=== PATIENT | female | born 1970 | race Caucasian/White ===

== ENCOUNTER 2020-07-12 19:02 | Emergency (ER) | payer SELFPAY ==
[~2020-07-12] VITALS: Ht 160 cm; Wt 66.7 kg
[~2020-07-12 19:02] MED LIST: SULF1TAB35 PO
[2020-07-12] MEDS ORDERED: LIDOCAINE/EPI 2% 1:100,00 (XYLOCAINE) 20 ML VIAL ONE (19:13)
--- NOTE | 2020-07-12 19:24 | ED EENT ---
History of Present Illness General Stated Complaint: LEFT CHEEK/FACIAL PAIN Source: patient Exam Limitations: no limitations History of Present Illness Date Seen by Provider: Jul 12, 2020 Time Seen by Provider: 19:22 Initial Comments To ER with reports of left cheek and facial pain since this morning. No fevers or chills. Timing/Duration: abrupt Severity: moderate Location: facial, dental Prearrival Treatment: no prearrival treatment Associated Symptoms: denies symptoms Allergies and Home Medications Allergies Coded Allergies: codeine (Verified Allergy, Unknown, 08/31/05) meperidine (Verified Allergy, Unknown, 08/31/05) morphine (Verified Allergy, Unknown, 08/31/05) Uncoded Allergies: MUSCLE RELAXANTS (Allergy, Unknown, 08/31/05) Home Medications Clindamycin HCl 300 Mg Capsule, 300 MG PO TID Prescribed by: PAULINE DE LA CRUZ on 07/12/202047 Hydrocodone/Acetaminophen 1 Each Tablet, 1 TAB PO Q4H PRN for PAIN-MODERATE (5- 7) Prescribed by: PAULINE DE LA CRUZ on 07/12/202047 Sulfamethoxazole/Trimethoprim 1 Each Tablet, 1 EACH PO BID Prescribed by: ANNIKA SHEPPARD on 01/09/12 1422 Patient Home Medication List Home Medication List Reviewed: Yes Review of Systems Review of Systems Constitutional: see HPI Eyes: No Symptoms Reported Ears: No Symptoms Reported Nose: no symptoms reported Mouth: no symptoms reported Throat: no symptoms reported Respiratory: no symptoms reported Cardiovascular: no symptoms reported Musculoskeletal: no symptoms reported Physical Exam Vital Signs Vital Signs - First Documented 07/12/20 19:12 Temp 36.3 Pulse 88 Resp 16 B/P (MAP) 136/79 (98) Pulse Ox 98 O2 Delivery Room Air Height, Weight, BMI Height: '" Weight: lbs. oz. kg; BMI Method:Stated General Appearance: WD/WN, no apparent distress Eyes: bilateral eye normal inspection, bilateral eye PERRL, bilateral eye EOMI Ears: bilateral ear auricle normal, bilateral ear canal normal, bilateral ear TM normal Mouth/Throat: other (Mild left facial erythema and swelling. Most of the pain seems to be originating from some swelling just superior to the 1 and 1/2 remaining teeth on the left side of the maxilla. Did a supraperiosteal nerve block using lidocaine with epinephrine totaling 2 mL. No fluctuance to suggest drainable abscess. Will obtain CT.) Neck: non-tender, full range of motion; No lymphadenopathy (R), No lymphadenopathy (L) Respiratory: no respiratory distress, no accessory muscle use Neurologic/Psychiatric: alert, normal mood/affect, oriented x 3 Skin: normal color, warm/dry Progress/Results/Core Measures Results/Orders Lab Results Laboratory Tests Test 07/12/20 19:21 Range/Units White Blood Count 6.3 4.3-11.0 10^3/uL Red Blood Count 4.92 3.80-5.11 10^6/uL Hemoglobin 13.7 11.5-16.0 g/dL Hematocrit 43 35-52 % Mean Corpuscular Volume 86 80-99 fL Mean Corpuscular Hemoglobin 28 25-34 pg Mean Corpuscular Hemoglobin Concent 32 32-36 g/dL Red Cell Distribution Width 13.2 10.0-14.5 % Platelet Count 196 130-400 10^3/uL Mean Platelet Volume 10.6 9.0-12.2 fL Immature Granulocyte % (Auto) 0 % Neutrophils (%) (Auto) 63 42-75 % Lymphocytes (%) (Auto) 24 12-44 % Monocytes (%) (Auto) 12 0-12 % Eosinophils (%) (Auto) 1 0-10 % Basophils (%) (Auto) 0 0-10 % Neutrophils # (Auto) 4.0 1.8-7.8 10^3/uL Lymphocytes # (Auto) 1.5 1.0-4.0 10^3/uL Monocytes # (Auto) 0.8 0.0-1.0 10^3/uL Eosinophils # (Auto) 0.1 0.0-0.3 10^3/uL Basophils # (Auto) 0.0 0.0-0.1 10^3/uL Immature Granulocyte # (Auto) 0.0 0.0-0.1 10^3/uL Sodium Level 140 135-145 MMOL/L Potassium Level 3.7 3.6-5.0 MMOL/L Chloride Level 108 H 98-107 MMOL/L Carbon Dioxide Level 22 21-32 MMOL/L Anion Gap 10 5-14 MMOL/L Blood Urea Nitrogen 9 7-18 MG/DL Creatinine 0.70 0.60-1.30 MG/DL Estimat Glomerular Filtration Rate > 60 BUN/Creatinine Ratio 13 Glucose Level 97 70-105 MG/DL Calcium Level 8.7 8.5-10.1 MG/DL My Orders Orders - PAULINE DE LA CRUZ APRN Ct Maxillofacial W (07/12/20 19:20) Cbc With Automated Diff (07/12/20 19:20) Basic Metabolic Panel (07/12/20 19:20) Ketorolac Injection (Toradol Injection) (07/12/20 19:30) Ns Iv 1000 Ml (Sodium Chloride 0.9%) (07/12/20 19:30) Clindamycin 900 Mg/50 Ml Ivpb (Cleocin P (07/12/20 19:30) Iohexol Injection (Omnipaque 350 Mg/Ml 1 (07/12/20 19:30) Received Contrast (Hold Metformin- Contr (07/12/20 19:30) Ns (Ivpb) (Sodium Chloride 0.9% Ivpb Bag (07/12/20 19:30) Rx-Hydrocodone/Apap 5-325 Mg (Rx-Vicodin (07/12/20 21:00) Rx-Clindamycin Capsule (Rx-Cleocin Capsu (07/12/20 20:50) Medications Given in ED Current Medications Medications Dose Ordered Sig/Yesi Route Start Time Stop Time Status Last Admin Dose Admin Clindamycin Phosphate/Dextrose 50 ml @ 100 mls/hr ONCE ONCE IV 07/12/20 19:30 07/12/20 19:59 DC 07/12/20 19:41 100 MLS/HR Iohexol 75 ml ONCE ONCE IV 07/12/20 19:30 07/12/20 19:31 DC 07/12/20 20:01 80 ML Ketorolac Tromethamine 15 mg ONCE ONCE IVP 07/12/20 19:30 07/12/20 19:31 DC 07/12/20 19:41 15 MG Sodium Chloride 100 ml ONCE ONCE IV 07/12/20 19:30 07/12/20 19:31 DC 07/12/20 20:01 100 ML Vital Signs/I&O 07/12/20 19:12 Temp 36.3 Pulse 88 Resp 16 B/P (MAP) 136/79 (98) Pulse Ox 98 O2 Delivery Room Air Departure Communication (Admissions) Are a few dots of air seen in the left malar region. However the CT was obtained after subperiosteal injection for anesthesia. This area could very well be from the injection. White count is normal, afebrile no systemic symptoms. She received IV clindamycin. All of her prescription for same at home. NAME: ANA NICOLAS [facility] REC#: [id number] PT STATUS: REG ER : 1970 PHYSICIAN: PAULINE DE LA CRUZ APRN ADMIT DATE: 07/12/20/ER Draft Date of Exam:07/12/20 CT MAXILLOFACIAL W CLINICAL INDICATION: Patient with facial swelling with redness. Left side of the face is tender x 1 day ago. EXAM: Axial CT scan of maxillofacial structures performed with 80 mL of Omnipaque 350 IV contrast. Sagittal and coronal reformatted images were created. Auto Exposure Controls were utilized during the CT exam to meet ALARA standards for radiation dose reduction. COMPARISON: None. FINDINGS: Limited visualization of the intracranial structures show no significant abnormality. Orbits and globes are intact and unremarkable. There is significant soft tissue swelling involving the left malar, left upper lip region and adjacent left side of the nasal maxillary region. There is no fracture seen. There are bony erosions adjacent to the maxillary left premolar teeth with some cortical disruption of the medial lateral aspect of the maxilla alveolar region. There is significant dental caries with erosions of the crown of the maxillary left premolar or molar tooth in the region. There is a 7 mm x 4 mm x 10 mm abscess seen laterally adjacent to the left maxillary molar region by the bony erosions and dental caries of the left premolar/molar region. There are small focal areas of air seen in the left premolar region adjacent to the area of dental caries. There is dental caries also seen throughout the maxillary and mandibular teeth. There is moderate mucosal thickening involving the left maxillary sinus most pronounced in the floor region. Remainder of the paranasal sinuses are clear. Mastoid air cells are clear. The remainder of the neck soft tissue structures are unremarkable. Cervical spine shows mild degenerative spurs. IMPRESSION: 1: There is significant dental caries and bony erosions with cortical disruption of the maxillary left premolar/molar region and a small adjacent soft tissue abscess. There is significant soft tissue swelling in the left malar and left upper lip region. There are dots of soft tissue air in the left malar region as well. These findings are all concerning for an odontogenic process. 2: There is poor dentition seen throughout the maxillary and mandibular regions. 3: Left maxillary sinus disease. Dictated on workstation # [id number] Dict: 07/12/202010 Trans: 07/12/202036 Emil [id number] Interpreted by: DELONTE MORENO MD Electronically signed by: Impression Primary Impression: Cellulitis and abscess of face Disposition: 01 HOME, SELF-CARE Condition: Stable Departure-Patient Inst. Decision time for Depature: 20:46 Referrals: NO,LOCAL PHYSICIAN (PCP/Family) Primary Care Physician Patient Instructions: Dental Pain Add. Discharge Instructions: . Return to ER for worsening swelling or fevers. Call your dentist of your choosing on Wednesday. Take antibiotics as directed. Scripts Clindamycin HCl (Clindamycin HCl) 300 Mg Capsule 300 MG PO TID, #21 CAP Prov: PAULINE DE LA CRUZ APRN 07/12/20 Hydrocodone/Acetaminophen (Hydrocodone-Acetamin 5-325 mg) 1 Each Tablet 1 TAB PO Q4H PRN for PAIN-MODERATE (5-7), #5 TAB Prov: PAULINE DE LA CRUZ APRN 07/12/20 Work/School Note: Work Release Form Date Seen in the Emergency Department: Jul 12, 2020 Return to Work: Jul 13, 2020 PAULINE DE LA CRUZ APRN Jul 12, 2020 19:24
[2020-07-12 19:26] LABS: BASOPHILS % (AUTO) 0 % (0-10); EOSINOPHILS # (AUTO) 0.1 10^3/uL (0.0-0.3); EOSINOPHILS % (AUTO) 1 % (0-10); HEMATOCRIT 43 % (35-52); HEMOGLOBIN 13.7 g/dL (11.5-16.0); LYMPHOCYTES # (AUTO) 1.5 10^3/uL (1.0-4.0); LYMPHOCYTES % (AUTO) 24 % (12-44); MEAN CORPUSCULAR HEMOGLOBIN 28 pg (25-34); MEAN CORPUSCULAR HGB CONC 32 g/dL (32-36); MEAN CORPUSCULAR VOLUME 86 fL (80-99); MEAN PLATELET VOLUME 10.6 fL (9.0-12.2); MONOCYTES # (AUTO) 0.8 10^3/uL (0.0-1.0); MONOCYTES % (AUTO) 12 % (0-12); NEUTROPHILS % (AUTO) 63 % (42-75); PLATELET COUNT 196 10^3/uL (130-400); WHITE BLOOD COUNT 6.3 10^3/uL (4.3-11.0)
[2020-07-12] MEDS ORDERED: KETOROLAC 30 MG/ML VIAL IVP ONE (19:30)
[2020-07-12] MEDS ORDERED: NS 100 ML (IVPB) BAG IV ONE (19:30)
[2020-07-12] MEDS ORDERED: NS IV 1000 ML 1,000 ML IV SCH (19:30)
[2020-07-12] MEDS ORDERED: CLINDAMYCIN 900 MG/50 ML IVPB 50 ML IV ONE (19:30)
[2020-07-12] MEDS ORDERED: IOHEXOL 350 MG/ML 100 ML (OMNIPAQUE 350) VIAL IV ONE (19:30)
[2020-07-12] MEDS ORDERED: HOLD METFORMIN - RECEIVED CONTRAST 20 ML VIAL IV SCH (19:30)
[2020-07-12 19:37] LABS: CHLORIDE 108 MMOL/L (98-107); POTASSIUM 3.7 MMOL/L (3.6-5.0); SODIUM 140 MMOL/L (135-145)
[2020-07-12 19:38] LABS: CALCIUM 8.7 MG/DL (8.5-10.1); GLUCOSE 97 MG/DL (70-105)
[2020-07-12 19:40] LABS: CARBON DIOXIDE 22 MMOL/L (21-32)
[2020-07-12 19:42] LABS: GFR ESTIMATED > 60
[2020-07-12 19:43] LABS: BUN/CREATININE RATIO 13
--- NOTE | 2020-07-12 20:38 | Diagnostic Imaging Report ---
CLINICAL INDICATION: Patient with facial swelling with redness. Left side of the face is tender x 1 day ago. EXAM: Axial CT scan of maxillofacial structures performed with 80 mL of Omnipaque 350 IV contrast. Sagittal and coronal reformatted images were created. Auto Exposure Controls were utilized during the CT exam to meet ALARA standards for radiation dose reduction. COMPARISON: None. FINDINGS: Limited visualization of the intracranial structures show no significant abnormality. Orbits and globes are intact and unremarkable. There is significant soft tissue swelling involving the left malar, left upper lip region and adjacent left side of the nasal maxillary region. There is no fracture seen. There are bony erosions adjacent to the maxillary left premolar teeth with some cortical disruption of the medial lateral aspect of the maxilla alveolar region. There is significant dental caries with erosions of the crown of the maxillary left premolar or molar tooth in the region. There is a 7 mm x 4 mm x 10 mm abscess seen laterally adjacent to the left maxillary molar region by the bony erosions and dental caries of the left premolar/molar region. There are small focal areas of air seen in the left premolar region adjacent to the area of dental caries. There is dental caries also seen throughout the maxillary and mandibular teeth. There is moderate mucosal thickening involving the left maxillary sinus most pronounced in the floor region. Remainder of the paranasal sinuses are clear. Mastoid air cells are clear. The remainder of the neck soft tissue structures are unremarkable. Cervical spine shows mild degenerative spurs. IMPRESSION: 1: There is significant dental caries and bony erosions with cortical disruption of the maxillary left premolar/molar region and a small adjacent soft tissue abscess. There is significant soft tissue swelling in the left malar and left upper lip region. There are dots of soft tissue air in the left malar region as well. These findings are all concerning for an odontogenic infectious process. 2: There is poor dentition seen throughout the maxillary and mandibular regions. 3: Left maxillary sinus disease. Dictated by: Dictated on workstation # [id number]
[2020-07-12] MEDS ORDERED: ACHD5005 PO (20:48)
[2020-07-12] MEDS ORDERED: CLIN300C12 PO (20:48)
[2020-07-12] MEDS ORDERED: RX-CLINDAMYCIN 150 MG (CLEOCIN) CAP PPK#4 PO STA (20:50)
[2020-07-12] MEDS ORDERED: RX-HYDROCODONE/APAP 5/325 MG #4 TAB PK PO PRN (21:00)
[2020-07-12 21:31] VITALS: BP 125/86
== END 2020-07-12 21:31 | disposition home or self-care (01) ==
LOC: EDUNIT# 19:02 → ER 19:07
DX: L03.211 Cellulitis of face (principal); Z88.5 Allergy status to narcotic agent; Z88.8 Allergy status to other drugs, medicaments and biological substances
CPT/HCPCS: 36415; 70487; 80048; 85025

== ENCOUNTER 2020-12-25 01:05 | Emergency (ER) | payer SELFPAY ==
[~2020-12-25] VITALS: Ht 160 cm; Wt 65.7 kg
[~2020-12-25 01:05] MED LIST changes: +ACHD5005 PO; +CLIN300C12 PO
[2020-12-25] MEDS ORDERED: IBUPROFEN 800 MG (MOTRIN) TAB PO STA (01:32)
--- NOTE | 2020-12-25 01:43 | ED Lower Extremity ---
General Chief Complaint: Lower Extremity Stated Complaint: FALL AT HOME Nursing Triage Note: Pt reports she was walking her dog and fell down. Pt reports pain to L ankle. Source: patient Exam Limitations: no limitations History of Present Illness Date Seen by Provider: Dec 25, 2020 Time Seen by Provider: 01:26 Initial Comments Here with complaint of left lower leg pain after fall tonight. She states that she was going to walk her dog and was going out the front door when the dog pulled and she fell when she stepped down out of the door onto her left leg. She complains of pain to the area of the ankle and upper portion of the lower leg on the lateral aspect. Denies hitting her head or loss of consciousness. Denies other injury. She did take a Xanax that she happened to have to help calm down after the injury. She reports allergy to opiates. Onset: just prior to arrival (Approximately 30 minutes to 1 hour ago) Severity: moderate Pain/Injury Location: left leg Method of Injury: fell Modifying Factors: Improves With Immobilization; Worse With Movement Allergies and Home Medications Allergies Coded Allergies: codeine (Verified Allergy, Unknown, 08/31/05) meperidine (Verified Allergy, Unknown, 08/31/05) morphine (Verified Allergy, Unknown, 08/31/05) Uncoded Allergies: MUSCLE RELAXANTS (Allergy, Unknown, 08/31/05) Home Medications Clindamycin HCl 300 Mg Capsule, 300 MG PO TID Prescribed by: PAULINE DE LA CRUZ on 07/12/202047 Hydrocodone/Acetaminophen 1 Each Tablet, 1 TAB PO Q4H PRN for PAIN-MODERATE (5- 7) Prescribed by: PAULINE DE LA CRUZ on 07/12/202047 Sulfamethoxazole/Trimethoprim 1 Each Tablet, 1 EACH PO BID Prescribed by: ANNIKA SHEPPARD on 01/09/12 1422 Patient Home Medication List Home Medication List Reviewed: Yes Review of Systems Constitutional: see HPI; No chills, No fever Respiratory: no symptoms reported Cardiovascular: no symptoms reported Musculoskeletal: see HPI, joint pain, muscle pain Skin: No change in color, No lesions Past Wccemas-Jtfmzx-Jqqdky Hx Patient Social History Tobacco Use?: Yes Tobacco type used: Cigarettes Smoking Status: Current Everyday Smoker Use of E-Cig and/or Vaping dev: No Substance use?: No Alcohol Use?: No Pt feels they are or have been: No Immunizations Up To Date Tetanus Booster (TDap): Unknown PED Vaccines UTD: Yes Seasonal Allergies Seasonal Allergies: No Past Medical History Surgery/Hospitalization HX: Surgeries: Yes Respiratory: No Cardiac: No Neurological: Yes Headaches /Migraines Genitourinary: No Gastrointestinal: No Musculoskeletal: No Endocrine: No HEENT: No Cancer: No Psychosocial: No Integumentary: No Blood Disorders: No Family Medical History Reviewed Nursing Family Hx No Pertinent Family Hx Physical Exam Vital Signs Vital Signs - First Documented 12/25/20 01:22 Temp 35.1 Pulse 102 Resp 18 B/P (MAP) 137/119 (125) Pulse Ox 99 O2 Delivery Room Air Capillary Refill : Less Than 3 Seconds Height, Weight, BMI Height: '" Weight: lbs. oz. kg; 25.00 BMI Method:Stated General Appearance: WD/WN, mild distress, other (Speech somewhat slurred but answers questions appropriately) Cardiovascular: regular rate, rhythm, no murmur Respiratory: lungs clear, normal breath sounds Legs: right leg non-tender, right leg normal inspection, right leg normal range of motion; left leg limited range of motion (Due to pain), left leg pain, left leg soft tissue tenderness, left leg other (All findings are to the lower leg) Knees: bilateral knee non-tender, bilateral knee normal inspection, bilateral knee normal range of motion Ankles: right ankle non-tender, right ankle normal inspection, right ankle normal range of motion, right ankle no evidence of injury; left ankle limited range of motion (Pain), left ankle pain (Lateral aspect), left ankle soft tissue tenderness (Lateral aspect), left ankle other (No swelling noted) Feet: bilateral foot non-tender, bilateral foot normal inspection, bilateral foot normal range of motion; left foot soft tissue tenderness (Near the lateral malleolus) Neurologic/Psychiatric: alert, oriented x 3 Progress/Results/Core Measures Results/Orders My Orders Orders - LA BRASHER MD Tibia/Fibula, Left, 2 Views (12/25/20 01:32) Ankle, Left, 3 Views (12/25/20 01:32) Ibuprofen Tablet (Motrin Tablet) (12/25/20 01:32) Vital Signs/I&O 12/25/20 01:22 Temp 35.1 Pulse 102 Resp 18 B/P (MAP) 137/119 (125) Pulse Ox 99 O2 Delivery Room Air Blood Pressure Mean: 125 Progress Progress Note : Progress Note Seen and evaluated. X-ray left tib-fib and ankle. Ibuprofen 800 mg p.o. Ice pack given. Monitor patient. 0220: No acute fractures noted. Offered Cristopher wrap but patient states it does hurt a little bit. Discussed ice, elevation and rest and she will do that. She will also alternate ibuprofen and Tylenol. Discharged home with return precautions. Patient verbalized understanding of instructions and agreement with plan. Diagnostic Imaging Diagonstic Imaging: Xray Plain Films/CT/US/NM/MRI: ankle, other (Tib-fib) Comments No acute fractures noted on three view ankle and three-view tib-fib Reviewed: Reviewed by Me Departure Impression Primary Impression: Contusion of ankle Qualified Codes: S90.02XA - Contusion of left ankle, initial encounter Additional Impression: Sprain and strain of ankle Disposition: HOME, SELF-CARE Condition: Stable Departure-Patient Inst. Decision time for Depature: 02:21 Referrals: NO,LOCAL PHYSICIAN (PCP/Family) Primary Care Physician Patient Instructions: Ankle Sprain, Minor Contusion ED Add. Discharge Instructions: All discharge instructions reviewed with patient and/or family. Voiced understanding. You may use ice packs to area of concern 20 minutes/h as needed to reduce pain and swelling. You may alternate Tylenol/acetaminophen 1000 mg every 8 hours with ibuprofen 600 mg every 8 hours as needed for pain. You may use Cristopher wrap for comfort and stability. Follow-up with your doctor in a few days for recheck. Return for worse pain, swelling, weakness or other concerns as needed. LA BRASHER MD Dec 25, 2020 01:42
[2020-12-25 02:32] VITALS: BP 137/119
--- NOTE | 2020-12-25 06:53 | Diagnostic Imaging Report ---
INDICATION: Lower left leg pain. FINDINGS: 3 views. Ankle mortise in good alignment. Articulating surfaces are smooth. Joint spaces well-maintained. No fractures are seen about the distal tibia or fibula or within the proximal foot. IMPRESSION: Normal left ankle and lower leg. Dictated by: Dictated on workstation # [id number]
--- NOTE | 2020-12-25 06:56 | Diagnostic Imaging Report ---
INDICATION: Pain to left lower leg. FINDINGS: 3 views. Tibia and fibula are intact. Articulating surfaces appear normal at the ankle and knee. No periosteal reactive changes. No radiopaque foreign bodies. IMPRESSION: Negative left tibia-fibula. Dictated by: Dictated on workstation # [id number]
== END 2020-12-25 02:32 | disposition home or self-care (01) ==
LOC: EDUNIT# 01:05 → ER 01:09
DX: S93.402A Sprain of unspecified ligament of left ankle, initial encounter (principal); F17.210 Nicotine dependence, cigarettes, uncomplicated; Z88.5 Allergy status to narcotic agent; W10.9XXA Fall (on) (from) unspecified stairs and steps, initial encounter
CPT/HCPCS: 73590; 73610